=== PATIENT | male | born 1995 | race Caucasian/White ===

== ENCOUNTER 2016-05-25 13:53 | Outpatient (CLI) | payer OTHER | END 2016-05-25 13:54 | disposition home or self-care (01) | DX: R01.1 Cardiac murmur, unspecified (principal) ==

== ENCOUNTER 2017-02-23 21:31 | Outpatient (CLI) | payer OTHER | END 2017-02-23 21:32 | disposition EMS.NT | LOC: EMS 21:31 | PROVIDERS: ATTEND Surgery | DX: R07.9 Chest pain, unspecified (principal) ==